=== PATIENT | female | born 1985 | race Caucasian/White ===

== ENCOUNTER → 2020-02-29 | Outpatient (CLI) | payer OTHER | LOC: COL.RAD 10:10 | DX: E04.2 Nontoxic multinodular goiter (principal) ==

== ENCOUNTER 2021-01-07 22:24 | Inpatient (IN) | payer OTHER ==
[~2021-01-07] VITALS: Ht 170.2 cm; Wt 99.5 kg
[2021-01-07 23:00] VITALS: BP 133/81; PULSE 120
[2021-01-07 23:40] VITALS: BP 118/79; PULSE 99
[2021-01-07] MEDS ORDERED: PRENATAL TABLET PO (23:46)
[2021-01-07] MEDS ORDERED: LEVOXYL0.025 MG PO (23:46)
[2021-01-07] MEDS ORDERED: MACROBID 1100 MG/CAP PO (23:47)
[2021-01-07 23:50] LABS: HEMOGLOBIN 12.8 g/dl (12.5-16.0); MEAN CELL VOLUME 92 fl (80.0-100.0); MEAN CORPUSCULAR HEMOGLOBIN 31 pg (27.0-31.0); MEAN CORPUSCULAR HGB CONC 34 g/dl (33.0-37.0); MEAN PLATELET VOLUME 12.4 fl (7.4-10.4); PLATELET COUNT 180 K/mm3 (130-400); RED BLOOD COUNT 4.12 M/mm3 (4.10-5.30); REDCELL DISTRIBUTION WIDTH-CV 13.4 % (11.5-14.5)
[2021-01-08] VITALS (72 sets, daily range): BP systolic 91–141; BP diastolic 50–88; PULSE 69–125; TEMP 97.5–98.8
[2021-01-08 00:47] LABS: ANISOCYTOSIS 1+; LYMPHOCYTE 6 % (20.0-51.0); MYELOCYTE 3 % (0-0); NEUTROPHILS 83 % (42.0-75.2); PLATELET ESTIMATE NORMAL (NORMAL)
[2021-01-09] VITALS (70 sets, daily range): BP systolic 97–1244; BP diastolic 53–92; PULSE 73–113; TEMP 97.5–99.1
[2021-01-10 01:00] VITALS: BP 111/60; PULSE 86; TEMP 98
[2021-01-10 03:35] VITALS: BP 107/49; PULSE 83; TEMP 98.3
[2021-01-10 06:50] LABS: HEMATOCRIT 30.6 % (37.0-47.0)
[2021-01-10 06:52] LABS: HEMOGLOBIN 10.2 g/dl (12.5-16.0)
[2021-01-10 08:00] VITALS: BP 90/49; PULSE 77; TEMP 97.7
[2021-01-10 12:30] VITALS: BP 110/60; PULSE 80; TEMP 98
[2021-01-10 16:30] VITALS: BP 106/57; PULSE 75; TEMP 98
[2021-01-10 20:00] VITALS: BP 115/63; PULSE 90; TEMP 98.2
[2021-01-11 03:00] VITALS: BP 110/62; PULSE 70; TEMP 98.3
[2021-01-11 07:10] VITALS: BP 107/62; PULSE 74; TEMP 97.9
[2021-01-11] MEDS ORDERED: IBU600 MG PO (11:06)
[2021-01-11] MEDS ORDERED: PERCOCET 325 MG1 TA2 PO (11:07)
[2021-01-11 16:00] VITALS: BP 105/59; PULSE 69; TEMP 97.9
[2021-01-11 22:45] VITALS: BP 110/67; PULSE 72; TEMP 97.9
[2021-01-12 06:47] VITALS: BP 117/73; PULSE 80; TEMP 98
== END 2021-01-12 15:30 | disposition home or self-care (01) | DRG 788 ==
LOC: LDRO 22:24 → OB 23:03 → LDR 23:03 → OB 01-09 15:00
PROVIDERS: Obstetrics & Gynecology; ADMIT Obstetrics & Gynecology
PROC: 10D00Z1 Extraction of Products of Conception, Low, Open Approach (ICD-10-PCS; principal; 2021-01-09)
DX: O77.0 Labor and delivery complicated by meconium in amniotic fluid (principal); O99.283 Endocrine, nutritional and metabolic diseases complicating pregnancy, third trimester; E02 Subclinical iodine-deficiency hypothyroidism; O62.0 Primary inadequate contractions; O32.4XX0 Maternal care for high head at term, not applicable or unspecified; Z3A.39 39 weeks gestation of pregnancy; Z37.0 Single live birth; Z87.440 Personal history of urinary (tract) infections; Z88.1 Allergy status to other antibiotic agents; Z87.448 Personal history of other diseases of urinary system
CPT/HCPCS: J0690; J1885; J2400; J2405; J2590; J2795; J7120; J7121

== ENCOUNTER 2024-05-11 13:15 | Emergency (ER) | payer BC ==
[~2024-05-11] VITALS: Ht 172.7 cm; Wt 91.4 kg
[~2024-05-11 13:15] MED LIST: IBU600 MG PO; LEVOXYL0.025 MG PO; MACROBID 1100 MG/CAP PO; PERCOCET 325 MG1 TA2 PO; PRENATAL TABLET PO
[2024-05-11 13:34] VITALS: TEMP 98.7
[2024-05-11] MEDS ORDERED: Pantoprazole 40 MG in NS 10 ML IV ONE (14:30)
[2024-05-11 14:38] LABS: BASO # 0.1 K/mm3 (0.0-0.2); BASO % 0.8 % (0.0-2.0); EOS # 0.3 K/mm3 (0.0-0.7); EOS % 4.3 % (0.0-4.0); GRAN % 48.6 % (42.2-75.2); HEMATOCRIT 38.4 % (37.0-47.0); HEMOGLOBIN 12.7 g/dl (12.5-16.0); LYMPH # 2.3 K/mm3 (1.2-3.4); LYMPH % 37.8 % (20.0-51.0); MEAN CELL VOLUME 90 fl (80.0-100.0); MEAN CORPUSCULAR HEMOGLOBIN 30 pg (27-31); MEAN CORPUSCULAR HGB CONC 33 g/dl (33.0-37.0); MEAN PLATELET VOLUME 11.2 fl (7.4-10.4); MONO # 0.5 K/mm3 (0.1-0.6); MONO % 8.2 % (1.7-9.3); PLATELET COUNT 222 K/mm3 (130-400); RED BLOOD COUNT 4.29 M/mm3 (4.10-5.30); REDCELL DISTRIBUTION WIDTH-CV 12.7 % (11.5-14.5)
[2024-05-11 14:59] LABS: ALANINE AMINOTRANSFERASE 18 U/L (0-55); ALBUMIN 4.5 g/dL (3.5-5.0); ALKALINE PHOSPHATASE 50 U/L (40-150); ANION GAP 11 mmol/L (7-16); AST,SGOT 19 U/L (5-34); BILIRUBIN,TOTAL 0.4 mg/dL (0.2-1.2); BLOOD UREA NITROGEN 15 mg/dL (7-19); CALCIUM 9.8 mg/dL (8.4-10.2); CHLORIDE 104 mEq/L (98-107); CREATININE, serum 0.86 mg/dL (0.57-1.11); GLUCOSE 98 mg/dL (70-99); LIPASE 47 U/L (8-78); POTASSIUM 3.4 mEq/L (3.5-4.5); SODIUM 139 mEq/L (136-145); TOTAL PROTEIN 7.6 g/dl (6.2-8.1)
[2024-05-11 15:05] LABS: TROPONIN-I < 0.010 ng/mL (0.00-0.033)
[2024-05-11 17:07] VITALS: BP 107/55; PULSE 63
== END 2024-05-11 17:07 | disposition home or self-care (01) ==
LOC: COL.ER 13:15
PROVIDERS: Emergency Medicine
DX: R07.2 Precordial pain (principal)
CPT/HCPCS: J2470